=== PATIENT | female | born 1970 | race Caucasian/White ===

== ENCOUNTER → 2016-11-28 | Outpatient (CLI) | payer OTHER ==
--- NOTE | 2016-11-28 11:22 | REPMRS ---
Patient History The patient states she has not had a clinical breast exam in over a year. Patient is postmenopausal. No known family history of cancer. Digital Woman Screen Mammo: November 28, 2016 - Exam #: [id number] Bilateral CC and MLO view(s) were taken. Technologist: Amairani Cazares, Technologist Prior study comparison: January 05, 2015, digital woman screen mammo performed at [facility] [place]. December 28, 2013, right breast digital mammo diagnostic unilateral, performed at [facility]. November 25, 2013, digital woman screen mammo performed at [facility]. FINDINGS: The breast tissue is heterogeneously dense. This may lower the sensitivity of mammography. There is a moderate amount of heterogeneously dense fibroglandular tissue which is fairly symmetric. There is no interval development of dominant mass, architectural distortion, or clustered microcalcification typical of malignancy. There has been no change in the appearance of the mammogram from the prior studies. ASSESSMENT: BI-RADS/ACR category 1 mammogram. Negative. Recommendation Routine screening mammogram of both breasts in 1 year (for women over age 40). This mammogram was interpreted with the aid of an FDA-approved computer-aided dectection system. Electronically Signed By: Khurram Lamb MD 11/28/16 7863
== END ==
LOC: M WHC 09:39
PROVIDERS: ATTEND Family Medicine
DX: Z12.31 Encounter for screening mammogram for malignant neoplasm of breast (principal)

== ENCOUNTER → 2016-11-28 | Outpatient (REF) | payer OTHER | LOC: M SFHCWAGY 09:59 | PROVIDERS: ATTEND Family Medicine | DX: Z12.4 Encounter for screening for malignant neoplasm of cervix (principal) ==

== ENCOUNTER → 2016-12-02 | Outpatient (CLI) | payer OTHER ==
--- NOTE | 2016-12-02 21:56 | REP ---
Clinical: Postmenopausal bleeding . Technique: Transabdominal pelvic ultrasound followed by transvaginal examination for better evaluation of the endometrium and adnexa. Findings: Bladder is unremarkable and measures 13.6 x 9.7 x 11.4 cm. Retroverted uterus measures 7.5 x 5.5 x 5.4 cm and includes 3.6 x 2.9 x 2.9 cm right lateral fundal fibroid. The endometrial complex measures 5.1 mm thickness. No discrete endometrial abnormalities are appreciated. Bilateral ovaries are normal in appearance and vascularity without evidence for torsion. Right ovary measures 2.1 x 1.1 x 0.9 cm. Left ovary measures 1.8 x 0.7 x 0.6 cm. No pelvic fluid or adnexal mass lesion. Impression: 1. 3.6 cm right lateral fundal fibroid. 2. Endometrial complex measures up to 5.1 mm thickness without discrete endometrial abnormality appreciated. Signed by Gino Cueva MD 12/02/2016 09:48 P
== END ==
LOC: M WHC 12:33
PROVIDERS: ATTEND Family Medicine
DX: N95.0 Postmenopausal bleeding (principal)

== ENCOUNTER → 2016-12-26 | Outpatient (REF) | payer OTHER | LOC: M SFHCWAGY 08:48 | PROVIDERS: ATTEND Family Medicine | DX: N95.0 Postmenopausal bleeding (principal) ==

== ENCOUNTER → 2018-01-01 | Outpatient (REF) | payer OTHER | LOC: M SFHCWAGY 15:16 | DX: Z12.4 Encounter for screening for malignant neoplasm of cervix (principal) ==

== ENCOUNTER → 2018-01-01 | Outpatient (CLI) | payer OTHER | LOC: M WHC 15:09 | DX: Z12.31 Encounter for screening mammogram for malignant neoplasm of breast (principal); N60.31 Fibrosclerosis of right breast; N60.32 Fibrosclerosis of left breast | CPT/HCPCS: 77067 ==

== ENCOUNTER 2018-12-26 08:47 | Emergency (ER) | payer OTHER ==
[~2018-12-26] VITALS: Ht 154.9 cm; Wt 75.3 kg
[2018-12-26 08:48] VITALS: BP 157/70
[2018-12-26] MEDS ORDERED: METHOCARBAMOL 750 MG TAB PO ONE (09:30)
[2018-12-26] MEDS ORDERED: ROBA750T4 PO (09:34)
[2018-12-26] MEDS ORDERED: IBUP-1022 PO (09:34)
== END 2018-12-26 09:41 | disposition home or self-care (01) ==
LOC: M ED 08:47
DX: S23.3XXA Sprain of ligaments of thoracic spine, initial encounter (principal); X58.XXXA Exposure to other specified factors, initial encounter; Y92.89 Other specified places as the place of occurrence of the external cause; Z88.2 Allergy status to sulfonamides

== ENCOUNTER → 2019-07-29 | Outpatient (REF) | payer BC ==
[~2019-07-29] MED LIST: IBUP-1022 PO; ROBA750T4 PO
== END ==
LOC: M PLALAB 15:30
PROVIDERS: ATTEND Family Medicine
DX: Z12.4 Encounter for screening for malignant neoplasm of cervix (principal)

== ENCOUNTER → 2019-07-29 | Outpatient (CLI) | payer BC ==
--- NOTE | 2019-07-29 16:15 | REPMRS ---
Patient History The patient states she has not had a clinical breast exam in over a year. No known family history of cancer. 3D TOMOSYNTHESIS WAS PERFORMED. The [facility] lifetime risk for breast cancer is 9.2%. VOLMILKAA LINA B. Digital Woman Screen Mammo: July 29, 2019 - Exam #: [id number] Bilateral CC and MLO view(s) were taken. Technologist: Kristin Shankar, Technologist Prior study comparison: January 01, 2018, bilateral digital woman screen mammo performed at [facility]. November 28, 2016, digital woman screen mammo performed at [facility]. FINDINGS: The breast tissue is heterogeneously dense. This may lower the sensitivity of mammography. There has been no change in the appearance of the mammogram from the prior studies. There is a moderate amount of residual fibroglandular tissue which is fairly symmetric. There is no interval development of dominant mass, areas of architectural distortion, or clustered microcalcification typical of malignancy. Assessment: BI-RADS/ACR category 1 mammogram. Negative Mammogram. Recommendation Routine screening mammogram in 1 year (for women over age 40). This mammogram was interpreted with the aid of an FDA-approved computer-aided dectection system. Electronically Signed By: Chapo Herron MD 07/29/19 [id number]
== END ==
LOC: M WHC 15:09
PROVIDERS: ATTEND Family Medicine
DX: Z12.31 Encounter for screening mammogram for malignant neoplasm of breast (principal)

== ENCOUNTER 2020-04-19 15:42 | Emergency (ER) | payer BC ==
[~2020-04-19] VITALS: Ht 154.9 cm; Wt 79.8 kg
--- OUTSIDE RECORDS SUMMARY | 2020-04-19 15:48 | CCD ---
Author Author [facility] Organization [facility] Address Unknown Phone Unavailable Support Name Relationship Address Phone [facility] Next Of Kin [address] [place] [address] JORDEN RODRIGUEZ Next Of Kin [address] [facility] [address] [place] [address] JORDEN RODRIGUEZ [address] [place] [address] Unavailable Re-disclosure Warning The records that you are about to access may contain information from federally-assisted alcohol or drug abuse programs. If such information is present, then the following federally mandated warning applies: This information has been disclosed to you from records protected by federal confidentiality rules (42 CFR part 2). The federal rules prohibit you from making any further disclosure of this information unless further disclosure is expressly permitted by the written consent of the person to whom it pertains or as otherwise permitted by 42 CFR part 2. A general authorization for the release of medical or other information is NOT sufficient for this purpose. The Federal rules restrict any use of the information to criminally investigate or prosecute any alcohol or drug abuse patient.The records that you are about to access may contain highly sensitive health information, the redisclosure of which is protected by Article 27-F of the [facility] Public Health law. If you continue you may have access to information: Regarding HIV / AIDS; Provided by facilities licensed or operated by the [facility] Office of Mental Health; or Provided by the [facility] Office for People With Developmental Disabilities. If such information is present, then the following [facility] mandated warning applies: This information has been disclosed to you from confidential records which are protected by state law. State law prohibits you from making any further disclosure of this information without the specific written consent of the person to whom it pertains, or as otherwise permitted by law. Any unauthorized further disclosure in violation of state law may result in a fine or skilled nursing sentence or both. A general authorization for the release of medical or other information is NOT sufficient authorization for further disc losure. Family History Family Member Name Family Member Gender Family Member Status Date o f Status Description Data Source(s) Unknown Male Problem MEDENT ([facility]) Encounters Encounter Providers Location Date Indications Data Source(s ) Outpatient 08/11/2019 08:25:00 AM EDT [facility] 08/10/2019 06:15:00 AM EDT [facility] Insurance Providers Payer name Policy type / Coverage type Policy ID Covered libertarian ID Covered libertarian's relationship to borja Policy Borja Plan Information [employer]-BS PPO 306 [id number] SP [id number] [employer] BCBS B [id number] S [id number] [id number] [employer] BCBS B [id number] S VY [id number] [place] P[place]/307 [id number] SP [id number] [place]/307 [id number] SP [id number] [facility] [address] [id number] [address] [id number] ANSI-Commercial [id number] [facility] Ins Cli Commercial [id number] Self [id number] [place] [id number] 18 [id number] [facility] [place] [id number] S [id number] [place] [id number] SP [id number] [employer] [place] PPO 302/307 [id number] FO2 [id number] [employer] [place] PPO 302/307 [id number] HU2 [id number] [employer] BCBS P [id number] C VYS [id number] SELF PAY UNAVAILABLE UNAVAILA BLE BCBS [place] PPO 302/307 [id number]
--- NOTE | 2020-04-19 16:23 | REP ---
INDICATION: trauma COMPARISON: None. TECHNIQUE: AP, lateral, bilateral oblique and sunrise views. FINDINGS: The osseous structures and joint spaces are intact and normal. There is no evidence for acute fracture or dislocation. No joint effusion is appreciated. Surrounding soft tissues are unremarkable. No subcutaneous emphysema or radiodense foreign body. IMPRESSION: Normal examination. No acute fracture or dislocation. <Electronically signed by Gino Cueva > 04/19/20 [id number]
[2020-04-19] MEDS ORDERED: NAPR-885 PO (17:19)
--- OUTSIDE RECORDS SUMMARY | 2020-04-19 17:26 | CCD ---
Author Author [facility] Organization [facility] Address Unknown Phone Unavailable Support Name Relationship Address Phone [facility] Next Of Kin [address] [place] [address] [facility] Next Of Kin [address] [facility] [address] [place] [address] [facility] Next Of Kin [address] [facility] [address] [place] [address] JORDEN RODRIGUEZ Next Of Kin [address] [place] [address] [address] [place] [address] JORDEN RODRIGUEZ [address] [place] [address] Unavailable Re-disclosure Warning The records that you [...] is protected by Article 27-F of the [facility] Public Health law. If you continue you may have access to information: Regarding HIV / AIDS; Provided by facilities licensed or operated by the [facility] Office of Mental Health; or Provided by the [facility] Office for People With Developmental Disabilities. If such information is present, then the following [facility] mandated warning applies: This information has been [...] law may result in a fine or nursing home sentence or both. A general authorization for the release of medical or other information is NOT sufficient authorization for further disc losure. Family History Family Member Name Family Member Gender Family Member Status Date o f Status Description Data Source(s) Unknown Male Problem MEDENT ([facility]) Encounters Encounter Providers Location Date Indications Data Source(s ) Outpatient 08/11/2019 08:25:00 AM EDT [facility] Outpatient 08/10/2019 06:15:00 AM EDT [facility] Insurance Providers Payer name Policy type / Coverage type Policy ID Covered green party ID Covered green party's relationship to borja Policy Borja Plan Information [employer]-BS PPO 306 [id number] SP [id number] [employer] BCBS B [id number] S [id number] [employer] BCBS B [id number] S VY [id number] [place] P[place] 302/307 [id number] SP [id number] [place] PPO 302/307 [id number] SP [id number] [facility] [address] [id number] SP [id number] ANSI-Commercial [id number] [facility] Ins Cli Commercial [id number] Self [id number] [place] [id number] 18 [id number] [facility] [place] [address] S [id number] [employer] [id number] SP [id number] [employer] [place] PPO 302/307 [id number] [id number] [place] PPO 302/307 [id number] [employer] BCBS P [id number] C VYS [id number] SELF PAY UNAVAILABLE UNAVAILA BLE BC[place] PPO 302/307 [id number]
[2020-04-19 17:30] VITALS: BP 142/76
== END 2020-04-19 17:31 | disposition home or self-care (01) ==
LOC: M ED 15:42
DX: S89.92XA Unspecified injury of left lower leg, initial encounter (principal); W10.9XXA Fall (on) (from) unspecified stairs and steps, initial encounter; Y92.019 Unspecified place in single-family (private) house as the place of occurrence of the external cause; Y93.9 Activity, unspecified; Y99.9 Unspecified external cause status; Z88.2 Allergy status to sulfonamides; Z88.6 Allergy status to analgesic agent; Z79.899 Other long term (current) drug therapy

== ENCOUNTER → 2020-08-02 | Outpatient (REF) | payer BC ==
[~2020-08-02] MED LIST changes: +NAPR-885 PO
== END ==
LOC: M SFHCWAGY 09:55
PROVIDERS: ATTEND Nurse Practitioner Women's Health
DX: Z12.4 Encounter for screening for malignant neoplasm of cervix (principal); N88.8 Other specified noninflammatory disorders of cervix uteri
CPT/HCPCS: 87624; G0123

== ENCOUNTER → 2020-08-24 | Outpatient (CLI) | payer BC ==
--- NOTE | 2020-08-24 16:44 | REP ---
INDICATION: ADDITIONAL VEIWS RIGHT BREAST TREVOR DENSITY. Potential trevor density right breast upper outer quadrant on screening mammography August 02, 2020. COMPARISON: Prior mammography August 02, 2020, July 29, 2019, and January 01, 2018. TECHNIQUE: Magnified focal spot-compression CC, MLO and true mL views are obtained. 3D tomography is carried out in the mL projection. Targeted right breast sonography is carried out. FINDINGS: Scattered fibroglandular tissue elements are again seen. True mL and 3D tomography in the mL projection fails to identify a suspicious nodular opacity in the right breast. Magnified focal spot-compression images demonstrate an equivocal isodense area in the upper outer quadrant. This does not appear in the same configuration as the 3D tomography images from August 02, 2020. No other significant mammographic finding. Targeted ultrasound: Targeted right breast sonography is performed through the upper outer quadrant, 9:00 to 12:00. Heterogeneous fibroglandular background echotexture is seen. No cyst or mass is observed. No acoustic shadowing is seen. IMPRESSION: BIRADS/ACR category 3 probably benign right breast mammographic findings. Normal right upper outer quadrant sonography period. This patient's Tyrer-Cuzick lifetime breast cancer risk assessment score is 9.0%. RECOMMENDATION: Repeat right breast mammography recommended in 6 months with ultrasound if indicated.. The patient letter being requested is M 3. <Electronically signed by Khurram Lamb > 08/24/20 1640
== END ==
LOC: M WHC 14:06
PROVIDERS: ATTEND Nurse Practitioner Women's Health
DX: R92.2 Inconclusive mammogram (principal)
CPT/HCPCS: 76642; 77065; G0279

== ENCOUNTER → 2021-02-11 | Outpatient (CLI) | payer BC ==
--- NOTE | 2021-02-11 16:21 | REP ---
INDICATION: DIAG RIGHT BREAST/6 MO F/U/CAT 3. COMPARISON: 08/24/2020 as well as other prior exams. TECHNIQUE: Tomographic sequences obtained of the right breast in multiple projections. FINDINGS: Moderate heterogeneous fibroglandular tissue is unchanged. Parenchymal pattern is stable. No new mass is seen. There is no cluster of microcalcifications. There are coarse benign type calcifications present. IMPRESSION: BIRADS/ACR category 3, probably benign. No change in the parenchymal pattern compared to the prior study. This mammogram was interpreted with the aid of an FDA-approved computer-aided detection system. Last clinical breast exam August 2020. Tyrer-zick lifetime risk of breast cancer 9.0%. The patient letter being requested is M3. RECOMMENDATION: Recommend follow-up bilateral mammogram July 2021. <Electronically signed by Chapo Herron > 02/11/21 0857
== END ==
LOC: M WHC 14:51
PROVIDERS: ATTEND Nurse Practitioner Women's Health
DX: R92.8 Other abnormal and inconclusive findings on diagnostic imaging of breast (principal)
CPT/HCPCS: 77065; G0279

== ENCOUNTER → 2021-09-20 | Outpatient (CLI) | payer BC | LOC: M WHC 15:11 | PROVIDERS: ATTEND Advanced Practice Midwife | DX: Z12.31 Encounter for screening mammogram for malignant neoplasm of breast (principal) ==

== ENCOUNTER → 2022-10-15 | Outpatient (CLI) | payer BC | LOC: M WHC 13:31 | PROVIDERS: ATTEND Advanced Practice Midwife | DX: Z12.31 Encounter for screening mammogram for malignant neoplasm of breast (principal) ==

== ENCOUNTER 2023-01-07 08:11 | Day surgery (SDC) | payer BC ==
[~2023-01-07] VITALS: Ht 154.9 cm; Wt 62.8 kg
[~2023-01-07 08:11] MED LIST changes: +LIDOCAINE 2% 100MG/5ML SDV (FOR ANES.) As Ordered ONE; +NS 1,000 ML IV ONE; +propofoL 200 MG/20 ML VIAL As Ordered ONE
[2023-01-07 09:14] VITALS: TEMP 97.2
[2023-01-07 09:29] VITALS: BP 122/70; O2SAT 99
== END 2023-01-07 09:44 | disposition home or self-care (01) ==
LOC: M OPP 08:11
PROVIDERS: ATTEND Surgery
DX: Z12.11 Encounter for screening for malignant neoplasm of colon (principal); Z88.2 Allergy status to sulfonamides; Z88.5 Allergy status to narcotic agent

== ENCOUNTER → 2023-11-05 | Outpatient (REF) | payer BC ==
[~2023-11-05] MED LIST changes: -LIDOCAINE 2% 100MG/5ML SDV (FOR ANES.) As Ordered ONE; -NS 1,000 ML IV ONE; -propofoL 200 MG/20 ML VIAL As Ordered ONE
[2023-11-07 16:07] LABS: HPV APTIMA Not Detected (Not Detected)
== END ==
LOC: M SFHCWAGY 13:28
PROVIDERS: ATTEND Nurse Practitioner Family
DX: Z12.4 Encounter for screening for malignant neoplasm of cervix (principal); R87.610 Atypical squamous cells of undetermined significance on cytologic smear of cervix (ASC-US)
CPT/HCPCS: 87624; G0123

== ENCOUNTER → 2023-11-05 | Outpatient (CLI) | payer BC | LOC: M WHC 08:28 | PROVIDERS: ATTEND Nurse Practitioner Family | DX: Z12.31 Encounter for screening mammogram for malignant neoplasm of breast (principal) ==

== ENCOUNTER → 2024-11-10 | Outpatient (CLI) | payer BC ==
[~2024-11-10] MED LIST changes: -IBUP-1022 PO; +IBUP600T42 PO
== END ==
LOC: M WHC 15:23
PROVIDERS: ATTEND Nurse Practitioner Family
DX: Z12.31 Encounter for screening mammogram for malignant neoplasm of breast (principal); R92.333 Mammographic heterogeneous density, bilateral breasts; R87.610 Atypical squamous cells of undetermined significance on cytologic smear of cervix (ASC-US)
CPT/HCPCS: 77063; 77067; 87624; G0123

== ENCOUNTER → 2024-11-10 | Outpatient (REF) | payer BC ==
[~2024-11-10] MED LIST changes: +IBUP-1022 PO; -IBUP600T42 PO
[2024-11-12 12:27] LABS: HPV APTIMA Not Detected (Not Detected)
== END ==
LOC: M SFHCWAGY 17:48
PROVIDERS: ATTEND Nurse Practitioner Family
DX: Z12.4 Encounter for screening for malignant neoplasm of cervix (principal); R87.610 Atypical squamous cells of undetermined significance on cytologic smear of cervix (ASC-US)
CPT/HCPCS: 87624; G0123